=== PATIENT | female | born 1960 | race Caucasian/White ===

== ENCOUNTER 2017-11-13 11:03 | Day surgery (SDC) | payer OTHER ==
[~2017-11-13 11:03] MED LIST: PROPOFOL 200 MG INJ
[2017-11-13] MEDS ORDERED: POLYMYXIN/BACITRACIN 1L IRRIG (13:41)
[2017-11-13] MEDS ORDERED: PROCHLORPERAZINE 10 MG INJ IV (14:00)
[2017-11-13] MEDS ORDERED: FENTAnyl 50 MCG/ML VIAL IV ×3 (14:00)
[2017-11-13] MEDS ORDERED: DIPHENHYDRAMINE 50 MG INJ IV (14:00)
[2017-11-13] MEDS ORDERED: HYDROmorphONE 1 MG/5 ML IV SYRINGE IV ×3 (14:00)
[2017-11-13] MEDS ORDERED: ONDANSETRON 4 MG INJ IV (14:00)
[2017-11-13] MEDS ORDERED: MEPERIDINE 25 MG INJ IV (14:00)
[2017-11-13] MEDS ORDERED: OXYCODONE/ACETAMINOPHEN (5/325) TAB PO (14:00)
[2017-11-13] MEDS: LIDOCAINE 2% (MDV) 20 ML INJ ×2 (14:26)
[2017-11-13] MEDS: BUPIVACAINE 0.5% (SDV) 30 ML INJ (14:26)
[2017-11-13] MEDS: KETOROLAC 30 MG INJ IV (15:07)
[2017-11-13] MEDS ORDERED: MIDAZOLAM 1 MG/ML 2 ML INJ (23:08)
[2017-11-13] MEDS ORDERED: CEFAZOLIN 1 GM INJ (23:08)
[2017-11-13] MEDS ORDERED: PROPOFOL 20 ML (23:08)
[2017-11-13] MEDS ORDERED: ONDANSETRON 4 MG INJ (23:08)
[2017-11-13] MEDS ORDERED: LIDOCAINE 2% (SDV) 5 ML INJ (23:08)
[2017-11-13] MEDS ORDERED: DEXAMETHASONE 4 MG/ML 1 ML INJ (23:08)
[2017-11-13] MEDS ORDERED: FAMOTIDINE 20 MG INJ (23:08)
[2017-11-13] MEDS ORDERED: FENTAnyl 50 MCG/ML VIAL (23:08)
== END 2017-11-13 16:58 | disposition home or self-care (01) ==
LOC: SDS 11:03
DX: M72.2 Plantar fascial fibromatosis (principal); I10 Essential (primary) hypertension; E03.9 Hypothyroidism, unspecified
CPT/HCPCS: 29893; 93005